=== PATIENT | male | born 2000 | race African-American/Black ===

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

== ENCOUNTER 2021-03-06 11:39 | Emergency (ER) | payer SELFPAY ==
[~2021-03-06] VITALS: Ht 180.3 cm; Wt 84.0 kg
[2021-03-06 12:32] VITALS: BP 123/87
[2021-03-06] MEDS ORDERED: ALBU2.5V8 IH (13:29)
--- NOTE | 2021-03-06 13:29 | ED.ADGEN ---
Past Medical History Past Medical History: Asthma Past Surgical History: No Surgical History Smoking Status: Current Every Day Smoker Alcohol Use: None Drug Use: None General Adult EDM: Chief Complaint: MEDICATION REFILL HPI: HPI: Patient is a 20 year old AA male who presents emergency department with with sebastian duran for refill of his ProAir inhaler. Patient states he has been having problems with his asthma recently and that he has run out of his medication. Patient denies any chest pain, wheezing, shortness of breath, fever, cough, body aches, fatigue, abdominal pain, nausea, vomiting, diarrhea, or headache. He states that his chest does feel tight but denies any palpitations. The patient currently denies any pain. Review of Systems: Review of Systems: Complete ROS is negative unless otherwise noted in HPI. Current Medications: Current Medications Medications (Trade) Dose Ordered Sig/Alexsandra Start Time Stop Time Status Last Admin Dose Admin Albuterol Sulfate (Ventolin Neb Soln) 2.5 mg 1X ONCE 03/06/21 13:30 03/06/21 13:31 Allergies: Allergies: Allergies Coded Allergies Type Severity Reaction Last Updated Verified No Known Drug Allergies 03/21/14 No Physical Exam: PE: See Above Constitutional: Well developed, well nourished, no acute distress, non-toxic appearance. [] HENT: Normocephalic, atraumatic, bilateral external ears normal, nose normal. [] Eyes: PERRLA, EOMI, conjunctiva normal, no discharge. [] Neck: Normal range of motion, no stridor. [] Cardiovascular:Heart rate regular rhythm Lungs & Thorax: Respirations even and unlabored, no retractions, no respiratory distress, no wheezing, diminished throughout lower lobes, clear in upper lobes Skin: Warm, dry, no erythema, no rash. [] Extremities: No cyanosis, ROM intact, no edema. [] Neurologic: Alert and oriented X 3, no focal deficits noted. [] Psychologic: Affect normal, judgement normal, mood normal. [] Current Patient Data: Vital Signs: Vital Signs Date Time Temp Pulse Resp B/P (MAP) Pulse Ox O2 Delivery O2 Flow Rate FiO2 03/06/21 12:32 98.4 78 18 123/87 (99) 97 Room Air 98.4 EKG: EKG: [] Heart Score: C/O Chest Pain: No Risk Scores: Score 0 - 3: 2.5% MACE over next 6 weeks - Discharge Home Score 4 - 6: 20.3% MACE over next 6 weeks - Admit for Clinical Observation Score 7 - 10: 72.7% MACE over next 6 weeks - Early Invasive Strategies Radiology/Procedures: Radiology/Procedures: [] Course & Med Decision Making: Course & Med Decision Making Pertinent Labs and Imaging studies reviewed. (See chart for details) [] Dragon Disclaimer: Dragon Disclaimer: This electronic medical record was generated, in whole or in part, using a voice recognition dictation system. Departure Departure Impression: Primary Impression: Asthma exacerbation Additional Impression: Medication refill Disposition: HOME / SELF CARE / HOMELESS Condition: STABLE Referrals: CARRILLO LEIGH MD (PCP) Patient Instructions: Asthma Attacks, Prevention, Asthma, Adult, [id number] Additional Instructions: Fill the prescription(s) and use as directed. You may take Tylenol or ibuprofen as needed for pain/fever. Increase clear fluids. Avoid triggers such as smoke, fragrance, dust, and pollen. You may take OTC cough suppressants as needed. Follow-up with your primary care doctor if symptoms persist, return to the ER if symptoms worsen. Scripts Albuterol Sulfate (Proair Hfa) 8.5 Gm Hfa.aer.ad 2 PUFF IH PRN Q4-6HRS PRN for wheezing for 21 Days, #1 INHALER 2 Refills Prov: KEVIN BEGUM APRN 03/06/21 Problem Qualifiers Primary Impression: Asthma exacerbation Asthma severity: mild Asthma persistence: intermittent Qualified Codes: J45.21 - Mild intermittent asthma with (acute) exacerbation KEVIN BEGUM DOCUMENTATION ANALYST March 06, 2021 13:29
[2021-03-06] MEDS ORDERED: ALBUTEROL SULFATE 2.5 MG/3 ML NEBU. NEB ONE (13:30)
== END 2021-03-06 13:35 | disposition home or self-care (01) ==
LOC: ER 11:39
DX: J45.901 Unspecified asthma with (acute) exacerbation (principal); Z76.0 Encounter for issue of repeat prescription
CPT/HCPCS: 94640; 99283; J7613

== ENCOUNTER 2021-04-11 07:21 | Emergency (ER) | payer SELFPAY ==
[~2021-04-11] VITALS: Ht 177.8 cm; Wt 81.3 kg
[~2021-04-11 07:21] MED LIST changes: +ALBU2.5V8 IH
[2021-04-11] MEDS ORDERED: DEXAMETHASONE 4 MG TABLET PO ONE (08:15)
[2021-04-11] MEDS ORDERED: ONDANSETRON ODT 4 MG TAB.RAPDIS. PO ONE (08:30)
[2021-04-11] MEDS ORDERED: ONDANSETRON ODT 4 MG TAB.RAPDIS. ONE (08:31)
--- NOTE | 2021-04-11 08:42 | RAD ---
INDICATION: Reason: sob / Spl. Instructions: / History: COMPARISON: October 2017 FINDINGS: Single view of chest obtained. Enlarged cardiomediastinal silhouette. This is likely exaggerated by portable technique. No definite focal airspace consolidation or pulmonary edema. IMPRESSION: * No focal airspace consolidation or edema. Electronically signed by: Marcelino Thurman MD (04/11/2021 8:39 AM) [id number]
[2021-04-11 09:30] VITALS: BP 140/61
[2021-04-11] MEDS ORDERED: AMOX500C PO (09:52)
[2021-04-11] MEDS ORDERED: PRED50TA PO (09:52)
--- NOTE | 2021-04-11 09:52 | ED.ADGEN ---
Past Medical History Past Medical History: No Pertinent History, Asthma Past Surgical History: No Surgical History Smoking Status: Current Every Day Smoker Additional Information: E-CIGARETTES Alcohol Use: Occasionally Drug Use: None General Adult EDM: Chief Complaint: NAUSEA/VOMITING/DIARRHEA HPI: HPI: Patient is a 20-year-old male who presents to the emergency room with multiple complaints. Patient states that last he had onset of body aches, cough, fever, congestion, nausea, and diarrhea. He has not had any change in taste or smell. He is not try to take anything for his symptoms at home. He states that he has a significantly sore throat and pain with swallowing. He does not have any pain with talking or breathing. He denies any difficulty with breathing. Review of Systems: Review of Systems: Complete ROS is negative unless otherwise documented in HPI Current Medications: Current Medications Medications (Trade) Dose Ordered Sig/Alexsandra Start Time Stop Time Status Last Admin Dose Admin Dexamethasone (Decadron) 10 mg 1X ONCE 04/11/21 08:15 04/11/21 08:16 DC 04/11/21 08:35 10 MG Ondansetron HCl (Zofran Odt) 4 mg STK-MED ONCE 04/11/21 08:31 04/11/21 08:31 DC Allergies: Allergies: Allergies Coded Allergies Type Severity Reaction Last Updated Verified No Known Drug Allergies 04/11/21 No Physical Exam: PE: General: Awake, alert, NAD. Well Nourished, well hydrated. Cooperative HEENT: Atraumatic, EOMI, PERRL, airway patent, moist oral mucosa, bilateral tonsillar swelling with minimal ulcerations Neck: Supple, trachea midline Respiratory: CTA bilaterally, normal effort, no wheezing/crackles CV: RRR, no murmur, cap refill <2 GI: Soft, nondistended, nontender, no masses MSK: No obvious deformities Skin: Warm, dry, intact Neuro: A&O x3, speech NL, sensory and motor grossly intact, no focal deficits Psych: Normal affect, normal mood, not suicidal or homicidal Current Patient Data: Labs: Laboratory Tests Test 04/11/21 08:06 Group A Streptococcus Rapid Positive (NEGATIVE) Vital Signs: Vital Signs Date Time Temp Pulse Resp B/P (MAP) Pulse Ox O2 Delivery O2 Flow Rate FiO2 04/11/21 07:54 99.2 92 20 138/72 (94) 97 Room Air 99.2 EKG: EKG: [] Heart Score: C/O Chest Pain: N/A Risk Factors: Risk Factors: DM, Current or recent (<one month) smoker, HTN, HLP, family history of CAD, obesity. Risk Scores: Score 0 - 3: 2.5% MACE over next 6 weeks - Discharge Home Score 4 - 6: 20.3% MACE over next 6 weeks - Admit for Clinical Observation Score 7 - 10: 72.7% MACE over next 6 weeks - Early Invasive Strategies Radiology/Procedures: Radiology/Procedures: [] Course & Med Decision Making: Course & Med Decision Making Pertinent Labs and Imaging studies reviewed. (See chart for details) Patient is a 20-year-old male who presents to the emergency room with multiple complaints. It is possible patient could have novel coronavirus 19. He is not currently vaccinated. Covid swab was obtained. We did discuss quarantine and I have discussed with him that we will call him with the results. Patient does have positive strep test. We will treat him with antibiotics and steroids. He is well-appearing at this time. He does not have any hypoxia. He does not appear to be dehydrated. Patient's test results and vitals while in the ED were fully reviewed and discussed with the patient. Patient is stable and at this time does not need admission to the hospital. We have discussed strict return precautions and the importance of following up with their Primary Care Physician. Patient stated understanding and was given an opportunity to ask any questions. Patient is in agreement with plan. Altagracia Disclaimer: Altagracia Disclaimer: This electronic medical record was generated, in whole or in part, using a voice recognition dictation system. Departure Departure Impression: Primary Impression: Strep pharyngitis Additional Impression: Person under investigation for COVID-19 Disposition: HOME / SELF CARE / HOMELESS Condition: STABLE Referrals: CARRILLO LEIGH MD (PCP) Patient Instructions: Strep Throat Additional Instructions: Thank you for visiting [facility]. We appreciate you trusting us with your care. If any additional problems come up please don't hesitate to return to visit us. Follow up with your primary care provider so they can plan additional care if needed and know about the problem that you had today. If symptoms worsen come back to the Emergency Department. Any concerning symptoms that start such as chest pain, shortness of air, weakness or numbness on one side of the body, running high fevers or any other concerning symptoms return to the ER. You have a viral syndrome which may include symptoms like muscle aches, fevers, chills, runny nose, cough, sneezing, sore throat, nausea, vomiting, or diarrhea. One of the potential viruses that you may have is SARS-CoV-2, the virus that causes COVID-19, also known as the Coronavirus. You are just as likely to have a different viral infection such as the common cold, flu, etc. Most patients with the Coronavirus have mild symptoms and recover on their own. Resting, staying hydrated, and sleep based on known cases can be helpful. As of todays visit, you are well enough to go home and treat your symptoms with oral fluids and over the counter medications. Coronavirus testing is not performed on most people with mild symptoms who are being discharged from the emergency department. If Coronavirus testing was performed today the results will not be available for possibly up to 2 days. If your result is positive you will be contacted. Please follow the following precautions at home: 1. Stay home except to get medical care. 2. As advised by the CDC, we recommend that you stay in your home and minimize contact with other people. We do not want you to spread the infection. 3. Those who are older or have significant medical issues may have more severe symptoms from this infection. We recommend self-isolation FOR AT LEAST 7 DAYS after your 1st day of symptoms. AFTER you feel better please wait AT LEAST ANOTHER WEEK before returning to regular activities and being around other people. 4. IF you become sicker and have difficulty breathing, chest pain, are unable to eat/drink, severe vomiting, diarrhea, or weakness you may need to return to the Emergency Department. 5. You should restrict activities outside of your home, except for getting medical care. DO NOT go to work, school, or public areas. Avoid using public transportation, ride sharing, or taxis. 6. Separate yourself from other people in your home. You should use a separate bathroom if possible. 7. Avoid sharing personal household items such as dishes, cups, eating utensils, towels, etc. 8. Clean all high touch surfaces every day (door knobs, counter tops, etc). Use a household cleaning spray or wipe per label instructions. 9. Clean your hands often. Wash your hands with soap and water for at least 20 seconds. 10. Cover your mouth and nose when you cough or sneeze. 11. Throw used tissues in the trash and immediately wash your hands. For additional resources please visit the CDC website or the [facility] ([phone]), you may also call 211 for further information. Scripts Prednisone (PREDNISONE) 50 Mg Tablet 1 TAB PO DAILY, #5 TAB Prov: TEJAS TOLBERT MD 04/11/21 Amoxicillin (AMOXICILLIN) 500 Mg Capsule 1 CAP PO Q8HRS for infection for 7 Days, #21 CAP Prov: TEJAS TOLBERT MD 04/11/21 Problem Qualifiers TEJAS TOLBERT MD Apr 11, 2021 09:52
--- NOTE | 2021-04-12 08:10 | NUR ---
IP: Informed pt of negative covid test. pt verbalized understanding.
== END 2021-04-11 10:06 | disposition home or self-care (01) ==
LOC: ER 07:21
DX: J02.0 Streptococcal pharyngitis (principal); B95.0 Streptococcus, group A, as the cause of diseases classified elsewhere; Z20.822 Contact with and (suspected) exposure to COVID-19; J45.909 Unspecified asthma, uncomplicated; F17.210 Nicotine dependence, cigarettes, uncomplicated
CPT/HCPCS: 71045; 87880; 99285; U0003

== ENCOUNTER 2021-12-11 21:31 | Emergency (ER) | payer SELFPAY ==
[~2021-12-11] VITALS: Ht 177.8 cm; Wt 92.6 kg
[~2021-12-11 21:31] MED LIST changes: +AMOX500C PO; +PRED50TA PO
--- NOTE | 2021-12-11 21:47 | PHYS DOC ---
Past Medical History Past Medical History: No Pertinent History, Asthma Past Surgical History: No Surgical History Smoking Status: Current Every Day Smoker Alcohol Use: Occasionally Drug Use: None General Adult EDM: Chief Complaint: ANKLE PROBLEM HPI: HPI: Patient is a 21 year old male who presents to the ED today complaining of moderate sharp intermittent left lateral ankle pain, symptoms began today after he fell down playing basketball. Patient denies any loss of consciousness. Denies hitting his head on the ground. Denies any neck pain. States the pain is worse on weightbearing though he states he is able to walk. Denies anything specifically relieving the pain. Review of Systems: Review of Systems: Constitutional: Denies fever or chills. [] Musculoskeletal: Reports left ankle pain Integument: Denies rash. [] Neurologic: Denies headache, focal weakness or sensory changes. [] Psychiatric: Denies depression or anxiety. [] Heart Score: C/O Chest Pain: N/A Risk Factors: Risk Factors: DM, Current or recent (<one month) smoker, HTN, HLP, family history of CAD, obesity. Risk Scores: Score 0 - 3: 2.5% MACE over next 6 weeks - Discharge Home Score 4 - 6: 20.3% MACE over next 6 weeks - Admit for Clinical Observation Score 7 - 10: 72.7% MACE over next 6 weeks - Early Invasive Strategies Allergies: Allergies: Allergies Coded Allergies Type Severity Reaction Last Updated Verified No Known Drug Allergies 04/11/21 No Physical Exam: PE: Constitutional: Well developed, well nourished, no acute distress, non-toxic appearance. [] Skin: Warm, dry, no erythema, no rash. [] Back: No tenderness, no CVA tenderness. [] Extremities: Left lateral ankle with mild soft tissue swelling, no bruising noted. Tenderness on palpation of the left lateral ankle. Full passive range of motion to the left ankle, full active range of motion to the left toes. +2 left pedal pulse. Cap refill less than 2 seconds to left toes Neurologic: Alert and oriented X 3, normal motor function, normal sensory function, no focal deficits noted. [] Psychologic: Affect normal, judgement normal, mood normal. [] EKG: EKG: [] Radiology/Procedures: Radiology/Procedures: [] Course & Med Decision Making: Course & Med Decision Making Pertinent Labs and Imaging studies reviewed. (See chart for details) This is a 21-year-old male patient presenting to the ED today with left ankle pain that began today after falling. Left ankle x-rays interpreted by Dr. Michaels are negative for any acute findings, Colby wrap and Aircast applied to the left ankle by the ED abdomen, neurovascular exam done by the RN is normal. Ice elevation encouraged, OTC pain relievers. Follow-up with Ortho in 1 week if pain persists Altagracia Disclaimer: Dragon Disclaimer: This electronic medical record was generated, in whole or in part, using a voice recognition dictation system. Departure Departure Impression: Primary Impression: Left ankle sprain Qualified Codes: S93.402A - Sprain of unspecified ligament of left ankle, initial encounter Additional Impression: Fall Qualified Codes: W19.XXXA - Unspecified fall, initial encounter Disposition: HOME / SELF CARE / HOMELESS Condition: STABLE Referrals: CARRILLO LEIGH MD (PCP) JOSE DELANEY MD follow up in one week Patient Instructions: Ankle Sprain Additional Instructions: You were evaluated for left ankle pain, your left ankle x-rays are negative for any acute findings, wear the Colby bandage and Aircast provided as tolerated and needed. Try to ice and elevate the extremity. Take [id number] pain relievers as needed for pain. Follow-up with orthopedic doctor in 1 week if pain persist STACY SHEARER APRN Dec 11, 2021 21:47
[2021-12-11 22:58] VITALS: BP 130/75
--- NOTE | 2021-12-11 23:40 | RAD ---
XR EXAM OF ANKLE_LEFT 3V 12/11/2021 10:09 PM INDICATION: Pain, fall COMPARISON: None available. TECHNIQUE: 3 views of the left ankle are provided. FINDINGS/ IMPRESSION: There is no acute fracture or dislocation. Joint spaces are maintained. Bone mineralization is within normal limits. There is lateral soft tissue swelling. There is no soft tissue gas or osseous erosion . No radiopaque foreign body. Electronically signed by: Cris Wilburn MD (12/11/2021 11:37 PM) FINESSE
== END 2021-12-11 23:23 | disposition home or self-care (01) ==
LOC: ER 21:31
DX: S93.402A Sprain of unspecified ligament of left ankle, initial encounter (principal); J45.909 Unspecified asthma, uncomplicated; F17.200 Nicotine dependence, unspecified, uncomplicated; W18.39XA Other fall on same level, initial encounter; Y93.67 Activity, basketball; Y92.89 Other specified places as the place of occurrence of the external cause; Y99.8 Other external cause status
CPT/HCPCS: 73610; 99283; L4350; A6450